=== PATIENT | male | born 2005 | race Two or more races ===

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

== ENCOUNTER 2024-07-10 07:02 | Day surgery (SDC) | payer OTHER ==
[~2024-07-10 07:02] MED LIST: PROAIR RESPICL90 MCG IH
[2024-07-10] MEDS ORDERED: BACTRIM DS TAB1 EACH PO (15:18)
[2024-07-10] MEDS ORDERED: CELECOXIB200 MG PO (15:18)
[2024-07-10] MEDS ORDERED: TRAM1TAB98 PO (15:19)
== END 2024-07-10 20:30 | disposition home or self-care (01) ==
LOC: CIR.AMB 07:02
PROVIDERS: ATTEND Surgery
DX: L05.01 Pilonidal cyst with abscess (principal); J45.909 Unspecified asthma, uncomplicated